=== PATIENT | female | born 1980 | race African-American/Black ===

== ENCOUNTER 2016-07-10 21:49 | Emergency (ER) | payer OTHER ==
--- NOTE | ~2016-07-10 | EKG ---
PATIENT: JOHNATHON COLINDRES UNIT #: [id number] Ventricular Rate: 65 BPM Atrial Rate: 65 BPM P-R Interval: 178 ms QRS Duration: 78 ms Q-T Interval: 440 ms QTC Calculation(Bezet): 457 ms P [place]: 45 degrees Calculated R [place]rum: 21 degrees Calculated T [place]rum: 19 degrees Diagnosis Line: Normal sinus rhythm Diagnosis Line: Nonspecific T wave abnormality Diagnosis Line: Otherwise normal ECG Diagnosis Line: When compared with ECG of 03-MAR-2016 19:37, Diagnosis Line: No significant change was found Diagnosis Line: Confirmed by CARYN ALMENDAREZ MD ([id number]) on 07/13/2016 Diagnosis Line: 9:42:50 AM INTERPRETING MD: TANESHA BELLA
[~2016-07-10 21:49] MED LIST: ALLERGY MED; AMOXICILLIN PO; ASPIRIN EC81 M1 PO; B COMPLEX1 CA1 PO; BENADRYL PO; CELEXA; CITALOPRAM HBR40 MG PO; CLARITIN10 M2 PO; CLARITIN10 MG PO; EYE DROP TEARS15 ML OU; FLEXERIL10 MG PO; FLONASE 0.05% N16 G1; GLUCOPHAGE XR500 MG PO; HALDOL PO; LAMICTAL PO; LEVAQUIN750 MG PO; LIPITOR PO; LOPRESSOR PO; METFORMIN; METFORMIN HCL500 M1 PO; NEXIUM PO; PANTOPRAZOLE SO40 MG PO; PRENATAL1 TA1 PO; PRILOSEC PO; PROTONIX PO; RISPERIDONE PO; RISPERIDONE3 MG PO; SEROQUEL; SEROQUEL PO; SEROQUEL300 MG PO; SINGULAIR PO; TRAZODONE; TRAZODONE HCL100 MG PO; VITAMIN D250000 UNIT PO; VOLTAREN75 MG PO; ZESTRIL10 M1 PO; ZOCOR PO; ZOCOR20 MG PO
[2016-07-10 22:03] LABS: BASOPHIL# 0.1 X10e3 (0-0.3); BASOPHIL% 1.2 % (0-2.5); EOSINOPHIL# 0.1 X10e3 (0-0.7); EOSINOPHIL% 1.2 % (0.0-7.0); HEMATOCRIT 40.6 % (35.0-45.0); HEMOGLOBIN 13.4 gm/dL (12.0-16.0); LYMPHOCYTE# 3.4 X10e3 (1.0-3.5); LYMPHOCYTE% 49.6 % (17.0-45.0); MEAN CELL VOLUME 93.2 FL (83-96); MEAN CORPUSCULAR HEMOGLOBIN 30.8 PG (28-34); MEAN PLATELET VOLUME 8.4 FL (6.5-11.5); MONOCYTE# 0.5 X10e3 (0-1.0); MONOCYTE% 7.4 % (3.0-12.0); NEUTROPHIL# 2.8 X10e3 (1.5-7.1); NEUTROPHIL% 40.6 % (40-75); PLATELET COUNT 276 X10e3 (140-420); RED BLOOD COUNT 4.35 X10e (3.90-5.30); RED CELL DISTRIBUTION WIDTH 14.4 % (11.0-15.5); WHITE BLOOD COUNT 6.8 X10e3 (4.0-10.5)
[2016-07-10 22:04] LABS: DIFF IND NO
[2016-07-10 22:27] LABS: ALBUMIN SERUM 3.8 g/dL (3.5-5.0); BILIRUBIN,TOTAL 0.2 mg/dL (0.2-2.0); BUN/CREATININE RATIO 8.33; CALCIUM SERUM 9.1 mg/dL (8.4-10.2); CREATININE SERUM 0.6 mg/dL (0.6-1.4); GLOM FILT RATE Estimated 137.8 mL/min (>60); POTASSIUM 3.9 mmol/L (3.5-5.1)
[2016-07-10 22:28] LABS: BILIRUBIN, DIRECT 0.1 mg/dL (0.0-0.2); BILIRUBIN,INDIRECT 0.1 mg/dL (0.0-0.9)
[2016-07-10 22:48] LABS: URINE SOURCE CLEAN CATCH
[2016-07-10 22:51] LABS: URINE APPEARANCE CLEAR; URINE BILIRUBIN NEG (NEG); URINE BLOOD 2+ (NEG); URINE COLOR YELLOW; URINE GLUCOSE NEG (NEG); URINE KETONE NEG (NEG); URINE LEUKOCYTE ESTERASE NEG (NEG); URINE NITRATE NEG (NEG); URINE PH 6.5 (5-8); URINE PROTEIN NEG (NEG); URINE SPECIFIC GRAVITY 1.012 (1.003-1.035); URINE UROBILINOGEN 0.2 MG/DL (NEG)
[2016-07-10 22:53] LABS: URBCS1 AUWI 0-2 /[HPF] (0-2); URINE BACTERIA AUWI NEG (NEGATIVE); URINE SQUAMOUS EPITHELIAL CELL NONE SEEN /[HPF]; UWBCS1 AUWI 0-2 (0-5)
[2016-07-10 22:59] LABS: CULTURE INDICATED? NO
== END 2016-07-10 23:23 | disposition home or self-care (01) ==
LOC: CED 21:49
PROVIDERS: Emergency Medicine
DX: G56.03 Carpal tunnel syndrome, bilateral upper limbs (principal); E11.9 Type 2 diabetes mellitus without complications; I10 Essential (primary) hypertension
CPT/HCPCS: 29125; 80048; 80076; 81003; 82947; 84703; 85025; 93005; 99283